=== PATIENT | female | born 1965 | race Caucasian/White ===

== ENCOUNTER 2019-07-03 17:30 | Observation (INO) | payer OTHER ==
[~2019-07-03] VITALS: Ht 154.9 cm; Wt 62.6 kg
[2019-07-03 18:00] VITALS: BP 159/89
[2019-07-03 18:08] LABS: BASOPHILS 0.6 % (0-2); EOSINOPHILS 1.1 % (0-7); HEMATOCRIT 42.9 % (36.0-48.0); HEMOGLOBIN 14.9 g/dL (12-16); IMMATURE GRANULOCYTES 0.3 % (0-5); LYMPHOCYTES 39.5 % (15-50); MCH 33.1 pg (26.0-34.0); MCHC 34.7 g/dL (31.0-37.0); MCV 95.3 fL (80.0-100.0); MEAN PLATELET VOLUME 8.9 fL (7.4-10.4); MONOCYTES 8.4 % (2-11); NEUTROPHILS 50.1 % (40-80); PLATELET COUNT 244 10x3/uL (130-400); RDW 14.3 % (11.5-14.5); WBC 7.1 10x3/uL (4.8-10.8)
[2019-07-03 18:18] LABS: APTT 26.1 SECONDS (22.8-39.4); INR 0.93 (0.85-1.17); PROTIME 12.4 SECONDS (11.6-15.0)
[2019-07-03 18:19] LABS: CALC OSMOLALITY 264 mosm/kg (275-300); CALCIUM 8.9 mg/dL (8.5-10.1); CARBON DIOXIDE 29.1 mmol/L (21.0-32.0); CHLORIDE - SERUM 99 mmol/L (98-107); CREATININE - SERUM 0.7 mg/dL (0.6-1.3); GLUCOSE 87 mg/dL (74-106); POTASSIUM - SERUM 3.9 mmol/L (3.5-5.1); SODIUM 134 mmol/L (136-145); UREA NITROGEN 7 mg/dL (7-18); eGFR NON AFRICAN AMERICAN > 90 mL/min (90-120)
[2019-07-03 18:34] LABS: ALKALINE PHOSPHATASE 90 U/L (30-120); ALT (SGPT) 39 U/L (10-68); BILIRUBIN - TOTAL 0.55 mg/dL (0.2-1.3); CKMB 0.3 U/L (0.0-3.6); CREATINE KINASE 73 UL (21-215); MAGNESIUM - SERUM 1.9 mg/dL (1.8-2.4); PROTEIN - SERUM 7.4 g/dL (6.4-8.2)
[2019-07-03 18:39] LABS: TROPONIN-I < 0.017 ng/mL (0.000-0.060)
[2019-07-03 19:00] VITALS: BP 173/88
[2019-07-03 20:00] VITALS: BP 170/90
[2019-07-04] VITALS: BP 130/82
[2019-07-04 00:54] LABS: CKMB 0.5 U/L (0.0-3.6); CREATINE KINASE 65 UL (21-215); TROPONIN-I < 0.017 ng/mL (0.000-0.060)
[2019-07-04 02:44] VITALS: BP 127/76; BMI 25.3
[2019-07-04 04:00] VITALS: BP 146/78
[2019-07-04 06:37] LABS: BASOPHILS 0.4 % (0-2); EOSINOPHILS 1.4 % (0-7); HEMATOCRIT 38.5 % (36.0-48.0); HEMOGLOBIN 13.1 g/dL (12-16); IMMATURE GRANULOCYTES 0.2 % (0-5); LYMPHOCYTES 41.2 % (15-50); MCH 32.4 pg (26.0-34.0); MCV 95.3 fL (80.0-100.0); MEAN PLATELET VOLUME 9.2 fL (7.4-10.4); MONOCYTES 10.5 % (2-11); NEUTROPHILS 46.3 % (40-80); PLATELET COUNT 231 10x3/uL (130-400); RBC 4.04 10x6/uL (4.00-5.40); RDW 14.3 % (11.5-14.5)
[2019-07-04 06:51] LABS: ALBUMIN 3.1 g/dL (3.4-5.0); ALKALINE PHOSPHATASE 79 U/L (30-120); ALT (SGPT) 30 U/L (10-68); BILIRUBIN - TOTAL 0.16 mg/dL (0.2-1.3); CALCIUM 8.2 mg/dL (8.5-10.1); CARBON DIOXIDE 28.8 mmol/L (21.0-32.0); CHLORIDE - SERUM 102 mmol/L (98-107); CKMB 0.4 U/L (0.0-3.6); CREATINE KINASE 52 UL (21-215); CREATININE - SERUM 0.7 mg/dL (0.6-1.3); GLUCOSE 112 mg/dL (74-106); POTASSIUM - SERUM 3.5 mmol/L (3.5-5.1); PROTEIN - SERUM 6.1 g/dL (6.4-8.2); SODIUM 138 mmol/L (136-145); TROPONIN-I < 0.017 ng/mL (0.000-0.060); eGFR NON AFRICAN AMERICAN > 90 mL/min (90-120)
[2019-07-04 07:07] LABS: WBC 4.9 10x3/uL (4.8-10.8)
[2019-07-04 07:10] LABS: CALC OSMOLALITY 275 mosm/kg (275-300); UREA NITROGEN 10 mg/dL (7-18)
[2019-07-04] MEDS ORDERED: SOMA350 MG PO (07:14)
[2019-07-04] MEDS ORDERED: RANITIDINE HCL150 M1 PO (07:15)
[2019-07-04] MEDS ORDERED: CALAN SR120 MG PO (07:15)
[2019-07-04] MEDS ORDERED: TENORMIN50 MG PO (07:15)
[2019-07-04] MEDS ORDERED: LEXAPRO20 MG PO (07:15)
[2019-07-04] MEDS ORDERED: PERCOCET 10-321 EAC1 PO (07:16)
[2019-07-04] MEDS ORDERED: MAXALT MLT10 MG/TAB PO (07:17)
[2019-07-04] MEDS ORDERED: [UNRECOGNIZED DRUG - OTHER] (07:18)
[2019-07-04] MEDS ORDERED: HYQVIA ×2 (07:18)
[2019-07-04 09:47] VITALS: Ht 154.9 cm; Wt 62.6 kg
[2019-07-04 09:54] VITALS: BP 142/82
--- NOTE | 2019-07-04 11:37 | NUR ---
LEAVING FOR TREDMILL STRESS TEST BY W/C.
--- NOTE | 2019-07-04 12:05 | NUR ---
BACK FROM STRESS TEST. DIET RESUMED.
[2019-07-04 13:00] VITALS: BP 133/85
--- NOTE | 2019-07-04 13:19 | NUR ---
CAROTID DOPPLER DONE AT BS.
[2019-07-04 13:50] LABS: CKMB 0.5 U/L (0.0-3.6); CREATINE KINASE 54 UL (21-215)
[2019-07-04 13:51] LABS: TROPONIN-I < 0.017 ng/mL (0.000-0.060)
--- NOTE | 2019-07-04 15:11 | NUR ---
UP AMBULATING HALLWAY. GAIT STEADY.
--- NOTE | 2019-07-04 15:47 | MORECARE ---
CASE MANAGEMENT DISCHARGE SUMMARY PATIENT: BEKA NÚÑEZ UNIT: [id number] ADM DATE: 07/03/19 AGE: 54 : 61 SEX: F ROOM/BED: D.8664 AUTHOR: BETO CABRERA PHYSICIAN: REFERRING PHYSICIAN: MARU MCCALL MD DATE OF SERVICE: 07/04/19 Discharge Plan Patient Name: BEKA NÚÑEZ Facility: [facility]:[place] : 1965 Planned Disposition: Home or Self Care Anticipated Discharge Date: Discharge Date: Expected LOS: Initial Reviewer: [email or web address] Initial Review Date: 07/03/2019 Generated: 07/04/19 4:47 pm DCPIA - Discharge Planning Initial Assessment Updated by [email or web address]: Olivia Toribio on 07/04/19 3:45 pm * How many steps to enter\exit or inside your home? 0/0 * PCP none * Pharmacy [facility] * Preadmission Environment Home Alone * ADLs Independent * Equipment None * List name and contact numbers for known caregivers / representatives who currently or will assist patient after discharge: madisyn umana [phone] * Verbal permission to speak to the caregivers and representatives has been obtained from the patient. Yes * Community resources currently utilized None * Additional services required to return to the preadmission environment? No * Can the patient safely return to the preadmission environment? Yes * Has this patient been hospitalized within the prior 30 days at any hospital? No Coverage Notice Reviewer: [email or web address] - Verona Myers Notice Issued Date-Time: 07/03/2019 19:40 Notice Type: Medicare Outpatient Observation Notice Notice Delivered To: Patient Relationship to Patient: Self Otolaryngology Rep Name: Cecelia Núñez Delivery Method: HAND - Hand Delivered Sarai Days: Prior Verbal Notification: Recipient Understood Notice: Yes Recipient Signature: Yes Med Rec Note Co-signed by Attending: Coverage Notice Comment: NIEVES delivered to and signed by patient. Original given to patient and one placed on the chart. Patient Name: BEKA NÚÑEZ Page [phone] at 1547 All edits/amendments must be made on the electronic document DICTATION DATE: 07/04/19 6335 CURTAIN FITTER: DM 07/04/19 1547 RPT#: [id number] DC DATE: STATUS: ADM IN [facility] [address] [place] [address] END OF REPORT
--- NOTE | 2019-07-04 15:55 | MORECARE ---
CASE MANAGEMENT DISCHARGE SUMMARY PATIENT: BEKA NÚÑEZ UNIT: [id number] ADM DATE: 07/03/19 AGE: 54 : 61 SEX: F ROOM/BED: D.4039 AUTHOR: BETO CABRERA PHYSICIAN: REFERRING PHYSICIAN: MARU MCCALL MD DATE OF SERVICE: 07/04/19 Discharge Plan Patient Name: BEKA NÚÑEZ Facility: [facility]:[place] : 1965 Planned Disposition: Home or Self Care Anticipated Discharge Date: Discharge Date: Expected LOS: Initial Reviewer: [email or web address] Initial Review Date: 07/03/2019 Generated: 07/04/19 4:54 pm Comments DCP- Discharge Planning Updated by [email or web address]: Olivia Toribio on 07/04/19 2:[address] Patient Name: BEKA NÚÑEZ Admission Status: ER Accout number: [id number] Admission Date: 07-03-2019 : 1965 Admission Diagnosis: Attending: MARU MCCALL Current LOS: 1 Anticipated DC Date: Planned Disposition: Home or Self Care Primary Insurance: [place] Discharge Planning Comments: CM met with patient to complete initial dc planning assessment. CM educated patient on the CM role and verbal consent given by patient to complete assessment. CM verified patient's address, phone number, and emergency contact phone numbers. Patient lives alone. At discharge patient plans to return home, and feels this is a safe discharge. CM discussed availability of home health, rehab services, and medical equipment. Patient denies known discharge needs at this time. Patient states she is able to drive her self at home. CM will continue to follow and will assist as needed with dc plans/needs. IMM delivered, explained, signed by the patient, and placed in his chart. Signed form also left with patient. Slat Basket Maker Helper Machine: Olivia Toribio DCPIA - Discharge Planning Initial Assessment Updated by [email or web address]: Olivia Toribio on 07/04/19 3:45 pm * How many steps to enter\exit or inside your home? 0/0 * PCP none * Pharmacy [facility] * Preadmission Environment Home Alone * ADLs Independent * Equipment None * List name and contact numbers for known caregivers / representatives who currently or will assist patient after discharge: madisyn umana [phone] * Verbal permission to speak to the caregivers and representatives has been obtained from the patient. Yes * Community resources currently utilized None * Additional services required to return to the preadmission environment? No * Can the patient safely return to the preadmission environment? Yes * Has this patient been hospitalized within the prior 30 days at any hospital? No Coverage Notice Reviewer: [id number] Jevon Myers Notice Issued Date-Time: 07/03/2019 19:40 Notice Type: Medicare Outpatient Observation Notice Notice Delivered To: Patient Relationship to Patient: Self Pathology Laboratory Aide Name: Cecelia Núñez Delivery Method: HAND - Hand Delivered Sarai Days: Prior Verbal Notification: Recipient Understood Notice: Yes Recipient Signature: Yes Med Rec Note Co-signed by Attending: Coverage Notice Comment: NIEVES delivered to and signed by patient. Original given to patient and one placed on the chart. Reviewer: [email or web address] Jevon Toribio Notice Issued Date-Time: 07/04/2019 15:48 Notice Type: IM Discharge Notice Notice Delivered To: Patient Relationship to Patient: Pathology Laboratory Aide Name: Delivery Method: - Sarai Days: Prior Verbal Notification: Recipient Understood Notice: Yes Recipient Signature: Yes Med Rec Note Co-signed by Attending: Coverage Notice Comment: Last DP export: 07/04/19 2:47 p Patient Name: BEKA NÚÑEZ Page [id number] at 1555 All edits/amendments must be made on the electronic document DICTATION DATE: 07/04/191553 CONTROL SYSTEMS DESIGNER: UGO 07/04/19 155 RPT#: [id number] DC DATE: STATUS: ADM IN [facility] [address] [place] [address] END OF REPORT
--- NOTE | 2019-07-04 19:07 | NUR ---
RECEIVED BEDSIDE REPORT. PATIENT IS ALERT AND ORIENTED, RESTING COMFORTABLY IN BED. RESPIRATIONS ARE EVEN AND UNLABORED. NO S/S OF DISTRESS. NO C/O PAIN. CALL LIGHT WITHIN REACH. WILL CPOC.
[2019-07-05 00:11] VITALS: BP 135/79
--- NOTE | 2019-07-05 00:54 | NUR ---
PATIENT RESTING COMFORTABLY IN BED. RESPIRATIONS ARE EVEN AND UNLABORED. NO S/S OF DISTRESS. NO C/O PAIN. CALL LIGHT WITHIN REACH. WILL CPOC.
[2019-07-05 03:55] VITALS: BP 119/74
[2019-07-05] MEDS ORDERED: MAXALT MLT10 MG/TAB PO (06:45)
[2019-07-05] MEDS ORDERED: PEPCID AC20 MG PO (06:45)
[2019-07-05 08:00] VITALS: BP 140/79
--- NOTE | 2019-07-05 08:26 | NUR ---
UPON ADMIT, PATIENT HAS NOT HAD A FLU SHOT. WHEN ASKED FOR DISCHARGE, SHE REFUSED.
--- NOTE | 2019-07-05 09:13 | NUR ---
IV AND TELEMETRY DCD. DC PLANS GIVEN. UNDERSTANDING VOICED. ESCORTED TO CAR BY FISH PROCESSING SUPERVISOR.
--- NOTE | 2019-07-05 11:25 | ST ---
PATIENT:BEKA LARSON MEDICAL RECORD: [id number] SEX: F [facility] ORDER #: ADMISSION DATE: 07/03/19 AGE OF PATIENT: 54 REFERRING PHYSICIAN: INTERPRETING PHYSICIAN: JUAN WINCHESTER MD DATE OF SERVICE: 07/04/2019 PROCEDURE: Nuclear stress test. INDICATIONS: Chest pain of unknown etiology. She was exercised on standard Lexiscan protocol with 30 mCi of sestamibi injected at peak stress, 11 mCi used previously for rest images. FINDINGS: Gated SPECT reveals preserved ejection fraction at 74% with good wall motion and thickening and brightening throughout all segments. SPECT imaging Cardiolite was used as myocardial fusion agent. There is homogeneous uptake throughout all segments at rest and stress with no evidence of inducible ischemia or previous infarction. OVERALL IMPRESSION: 1. This is a normal nuclear stress test with no evidence of inducible ischemia or previous infarction. 2. Gated SPECT reveals a preserved ejection fraction at 74%. In this patient with ongoing symptomatology, the current scan does not suggest the presence of hemodynamically significant coronary artery disease. Evaluate noncardiac etiology of chest pain. TRANSINT:[id number] Voice Confirmation ID: [id number] DOCUMENT ID: [id number] JUAN WINCHESTER MD at 1125 CC: MARU MCCALL [id number] DICTATION DATE: 07/04/19 1723 PREMIX CONCRETE BATCHER: 07/05/19 0806 DIS IN 07/05/19 [facility] [address] [place] [address]
--- NOTE | 2019-07-05 11:25 | CN ---
PATIENT NAME:BEKA LARSON MEDICAL RECORD: [id number] : 61 LOCATION:D. D.2114 ADMIT DATE: 07/03/19 ACCOUNT: [id number] CONSULTING PHYSICIAN: JUAN WINCHESTER MD REFERRING PHYSICIAN: MARU MCCALL MD DATE OF CONSULTATION: 07/04/2019 DIAGNOSES: 1. Angina. 2. Hypertension. 3. Hyperlipidemia. 4. Smoking. 5. Family history of coronary artery disease. HISTORY OF PRESENT ILLNESS: Mrs. Larson has no history of ischemic heart disease. For the past 2 days, she has been having episodes of chest pain, chest discomfort compatible with angina. She as well has chronic migraines. For the past week, she has had a migraine headache. When she presented to the Emergency Room, she was hypertensive; however, now her blood pressures in the 120s. Her headache is under control. She is still having episodes of chest pain. It is a pressure-like sensation across the anterior chest, radiating to her left scapular area and radiating to her left jaw area. She has not had a workup for ischemic heart disease in the past. She has a history of carotid vascular disease. This has not been evaluated in a number of years. OVERALL IMPRESSION: Chest pain compatible with angina, normal EKG, normal troponin. We will risk stratify with stress testing and Cardiolite imaging. Further care depends upon findings of stress test. TRANSINT:[id number] Voice Confirmation ID: [id number] DOCUMENT ID: [id number] JUAN WINCHESTER MD at 1125 CC: [id number] DICTATION DATE: 07/04/19 0948 ACCOUNTS PAYABLE ASSOCIATE: 07/04/19 1117 DIS IN 07/05/19 [facility] [address] [place] [id number]
--- NOTE | 2019-07-06 08:59 | MORECARE ---
CASE MANAGEMENT DISCHARGE SUMMARY PATIENT: BEKA NÚÑEZ UNIT: [id number] ADM DATE: 07/03/19 AGE: 54 : 61 SEX: F ROOM/BED: D.3158 AUTHOR: BETO CABRERA PHYSICIAN: REFERRING PHYSICIAN: MARU MCCALL MD DATE OF SERVICE: 07/06/19 Discharge Plan Patient Name: BEKA NÚÑEZ Facility: [facility]:[place] : 1965 Planned Disposition: Home or Self Care Anticipated Discharge Date: 07/05/19 Discharge Date: 07/05/2019 Expected LOS: 2 Initial Reviewer: [email or web address] Initial Review Date: 07/03/2019 Generated: 07/06/19 9:59 am DCP- Discharge Planning Updated by [email or web address]: Olivia Toribio on 07/04/19 2:[address] Patient Name: BEKA NÚÑEZ Admission Status: ER Accout number: [id number] Admission Date: 07-03-2019 : 1965 Admission Diagnosis: Attending: MARU MCCALL Current LOS: 1 Anticipated DC Date: Planned Disposition: Home or Self Care Primary Insurance: [employer] Discharge Planning Comments: CM met with patient to complete initial dc planning assessment. CM educated patient on the CM role and verbal consent given by patient to complete assessment. CM verified patient's address, phone number, and emergency contact phone numbers. Patient lives alone. At discharge patient plans to return home, and feels this is a safe discharge. CM discussed availability of home health, rehab services, and medical equipment. Patient denies known discharge needs at this time. Patient states she is able to drive her self at home. CM will continue to follow and will assist as needed with dc plans/needs. IMM delivered, explained, signed by the patient, and placed in his chart. Signed form also left with patient. Viticulturist: Olivia Toribio DCPIA - Discharge Planning Initial Assessment Updated by [email or web address]: Olivia Toribio on 07/04/19 3:45 pm * How many steps to enter\exit or inside your home? 0/0 * PCP none * Pharmacy [facility] * Preadmission Environment Home Alone * ADLs Independent * Equipment None * List name and contact numbers for known caregivers / representatives who currently or will assist patient after discharge: madisyn umana [phone] * Verbal permission to speak to the caregivers and representatives has been obtained from the patient. Yes * Community resources currently utilized None * Additional services required to return to the preadmission environment? No * Can the patient safely return to the preadmission environment? Yes * Has this patient been hospitalized within the prior 30 days at any hospital? No Coverage Notice Reviewer: [email or web address] Jevon Myers Notice Issued Date-Time: 07/03/2019 19:40 Notice Type: Medicare Outpatient Observation Notice Notice Delivered To: Patient Relationship to Patient: Self Rn Tele Name: Cecelia Núñez Delivery Method: HAND - Hand Delivered Sarai Days: Prior Verbal Notification: Recipient Understood Notice: Yes Recipient Signature: Yes Med Rec Note Co-signed by Attending: Coverage Notice Comment: NIEVES delivered to and signed by patient. Original given to patient and one placed on the chart. Reviewer: [email or web address] Jevon Toribio Notice Issued Date-Time: 07/04/2019 15:48 Notice Type: IM Discharge Notice Notice Delivered To: Patient Relationship to Patient: Rn Tele Name: Delivery Method: - Sarai Days: Prior Verbal Notification: Recipient Understood Notice: Yes Recipient Signature: Yes Med Rec Note Co-signed by Attending: Coverage Notice Comment: Last DP export: 07/04/19 2:55 p Patient Name: BEKA NÚÑEZ Page 16149 at 0859 All edits/amendments must be made on the electronic document DICTATION DATE: 07/06/19858 SHELVER: UGO 07/06/19 0859 RPT#: [id number] DC DATE:07/05/19 STATUS: DIS IN [facility] [address] [place] [address] END OF REPORT
--- NOTE | 2019-07-10 16:00 | HP ---
PATIENT: BEKA LARSON MEDICAL RECORD: [id number] ACCOUNT: [id number] LOCATION:[address] : [birth year] ADMISSION DATE: 07/03/19 PCP: MARU MCCALL MD HISTORY AND PHYSICAL EXAMINATION REASON FOR ADMISSION: Headache and chest and scapular pain. HISTORY OF PRESENT ILLNESS: The patient is a 54-year-old 1 female with history of essential hypertension, nicotine abuse, and strong family history of heart disease. She states she was at work at the [employer] yesterday and felt onset of atypical left-sided ocular, aura, and occipital migraine headache. She took a Maxalt 10 mg and had partial relief of symptoms, but the headache did not resolve and became worse in the afternoon. She took another Maxalt, and her blood pressure was 190/105. Coworkers told her to come to the hospital and she went to the outpatient clinic, was referred to the ED. She also developed onset of some right scapular back pain that came through to her chest, but said her heart "felt like it was skipping". She has mild shortness of breath and nausea with diaphoresis. In the ED, she was given morphine with some relief in her headache and her chest and scapular discomfort. She relates no recent increased fatigue, exertional chest pain, shortness of breath, or scapular pain. She has a strong family history of heart disease. Unfortunately, she still smokes a pack a day of cigarettes. She is admitted for hypertension control and evaluation of her chest pain. PAST MEDICAL HISTORY: Essential hypertension, hyperlipidemia, depression, anxiety, history of left carotid atherosclerotic disease, nicotine dependence, G1 agammaglobulinemia, fibromyalgia, intermittent asthma, lumbar disc disease with radiculopathy, chronic back pain, chronic pain, postmenopausal, posthysterectomy, typical migraine, dyslipidemia. PAST SURGICAL HISTORY: BRII-BSO, cholecystectomy, and appendectomy. FAMILY HISTORY: Father of CAD, had hyperlipidemia, AL, and hypertension. Mother had fibromyalgia and AL. Grandparents both had heart disease. SOCIAL HISTORY: Smoked a pack a day for at least 15 years. Drinks occasional beer and wine. Has used marijuana in the past intermittently, not recently she states ALLERGIES: DEMEROL, SULFA. HOME MEDICATIONS: Aimovig 70 mg injection every month for migraine, Soma 350 mg tablet at bedtime for muscle spasm, oxycodone 10/325 one every 6 hours for severe pain, verapamil SR 120 mg p.o. daily, pravastatin 40 mg p.o. with evening meal, promethazine 25 mg 1 to 2 tabs q.6 hours p.r.n. nausea or vomiting, Lexapro 20 mg a day, buspirone 15 mg b.i.d., atenolol 50 mg a day, trazodone 50 mg at bedtime for sleep, omeprazole 20 mg p.o. q.a.m., vitamin D3 1000 units p.o. daily, alprazolam 0.5 mg 1/2 to 1 every 6 hours for anxiety, albuterol updrafts q.6 hours p.r.n., Flonase nasal spray daily, cetirizine 10 mg p.o. daily, EpiPen pack use p.r.n. for acute allergic reaction. REVIEW OF SYSTEMS: CONSTITUTIONAL: Denies recent fatigue or fever. HEENT: Had aura in her left eye during the headache, but no recent visual changes otherwise. Denies sinus congestion, sore throat. HISTORY AND PHYSICAL [id number] BEKA LARSON RESPIRATORY: Had mild shortness of breath with chest pain, but has not had increasing shortness of breath, cough, congestion recently. Denies history of hemoptysis. Does have history of intermittent asthma despite smoking. CARDIAC: No recent exertional chest pain, claudication, edema except as above. GASTROINTESTINAL: Had nausea with headache, otherwise no recent nausea, vomiting, swallowing difficulty, constipation, diarrhea, blood per rectum. She has history of IBS, diarrhea, improved on Aimovig. MUSCULOSKELETAL: Has chronic arthralgias in her cervical and lumbar spine. ENDOCRINE: Denies polyuria, polydipsia, heat or cold intolerance. NEUROLOGIC: No history of stroke, TIA or seizures. Has history of migraines as mentioned, much improved on Aimovig. INTEGUMENT: No rash or itching. PSYCHIATRIC: History of chronically depressed mood. No suicidal tendencies. PHYSICAL EXAMINATION: VITAL SIGNS: Temperature 97.9 Fahrenheit orally, pulse 72, respirations 18, blood pressure 164/97 with a sat of 96% on room air. HEENT: Normocephalic. Eyes are clear with some photophobia. Pupils reactive. EOMI vision intact. NECK: Some discomfort in her left posterior cervical spine with good range of motion. She is tender over her left occipital and parietal scalp to touch. No rash appreciated. Oropharynx unremarkable. CHEST: Normal respiratory rate. No retractions, minimal expiratory wheezes in the upper lobes. HEART: Regular rate without MGR. PMI appropriate. ABDOMEN: Soft, nontender throughout. Bowel sounds are active. EXTREMITIES: No CC&E. NEUROLOGICAL: Oriented to person, place, and time. Cranial nerves intact. Gait was not tested, but reported normal. Memory intact. LABORATORY DATA: Showed a normal chemistry, magnesium of 1.9. Normal liver functions. Cardiac enzymes times 2 are negative. H&H is 14 and 42.9 respectively. DIAGNOSTIC DATA: EKG shows sinus rhythm, no acute changes. Chest x-ray shows normal exam. Due to her headache, a CT scan of the head was performed without contrast showing no acute intracranial abnormality. ASSESSMENT: 1. Intractable migraine headache. 2. Atypical right scapular and chest pain with significant cardiac risk factors, suggestive of angina. 3. Uncontrolled hypertension, possible stress ischemia based on her symptoms. 4. Hyperlipidemia. 5. Strong family history of coronary artery disease. 6. Nicotine dependence, GERD, agammaglobulinemia, chronic pain syndrome, fibromyalgia. PLAN: The patient has been admitted for observation, serial cardiac enzymes, cardiac monitoring, blood pressure control. She will have cardiology consult, echocardiogram. Further workup to follow. TRANSINT:[id number] Voice Confirmation ID: [id number] DOCUMENT ID: [id number] HISTORY AND PHYSICAL [id number] BEKA LARSON TIMOTHY MD at 1600 CC: [id number] DICTATION DATE: 07/04/19 0736 UI PROGRAMMER: 07/04/19 0907 DIS IN 07/05/19 [id number] [place] [address]
== END 2019-07-05 09:14 | disposition home or self-care (01) ==
LOC: D.ER 17:30 → OBSVTIME 19:22 → D.M2 19:22
PROVIDERS: Family Medicine; ADMIT Family Medicine; ATTEND Family Medicine
DX: R07.9 Chest pain, unspecified (principal); G43.909 Migraine, unspecified, not intractable, without status migrainosus; I10 Essential (primary) hypertension; F17.200 Nicotine dependence, unspecified, uncomplicated; K21.9 Gastro-esophageal reflux disease without esophagitis; D80.1 Nonfamilial hypogammaglobulinemia; I20.9 Angina pectoris, unspecified; E78.5 Hyperlipidemia, unspecified; Z82.49 Family history of ischemic heart disease and other diseases of the circulatory system

== ENCOUNTER → 2019-11-21 08:36 | Outpatient (CLI) | payer OTHER ==
[2019-07-04 09:47] VITALS: BMI 25.3
[~2019-11-21 08:36] MED LIST: CALAN SR120 MG PO; HYQVIA; LEXAPRO20 MG PO; MAXALT MLT10 MG/TAB PO; PEPCID AC20 MG PO; PERCOCET 10-321 EAC1 PO; RANITIDINE HCL150 M1 PO; SOMA350 MG PO; TENORMIN50 MG PO; [UNRECOGNIZED DRUG - OTHER]
== END | disposition home or self-care (01) ==
LOC: D.NM 08:30
PROVIDERS: ATTEND Internal Medicine Gastroenterology
DX: R10.13 Epigastric pain (principal); R11.0 Nausea